=== PATIENT | female | born 1980 | race Caucasian/White ===

== ENCOUNTER 2020-03-25 09:45 | Outpatient (CLI) | payer BC, SELFPAY ==
--- NOTE | ~2020-03-25 | MM_ITS ---
EXAMINATION: MM screening mammo BI HISTORY: Screening mammogram TECHNIQUE: Craniocaudal and mediolateral oblique 3-D tomosynthesis images were obtained and synthetic 2-D images were generated. CAD analysis was submitted and interpreted. COMPARISON: No prior mammogram is available for comparison at this institution. BREAST PARENCHYMAL COMPOSITION: There are scattered areas of fibroglandular density. FINDINGS: There is no evidence of suspicious mass, calcification, or architectural distortion to sugg est malignancy in either breast. There has been no suspicious interval change. IMPRESSION: 1. No mammographic evidence of malignancy. 2. Recommend routine screening mammography in one year. BI-RADS Category 1: Negative Reviewed, dictated and finalized at location A.
== END 2020-03-25 09:46 | disposition home or self-care (01) ==
LOC: ANHIMG 09:46
PROVIDERS: PCP Family Medicine; Visit Provider Obstetrics & Gynecology
DX: Z12.31 Encounter for screening mammogram for malignant neoplasm of breast (principal)
CPT/HCPCS: 77067

== ENCOUNTER 2021-10-27 09:24 | Outpatient (CLI) | payer BC, SELFPAY ==
--- NOTE | ~2021-10-27 | MM_ITS ---
EXAMINATION: MM screening angela BI w sebastian HISTORY: Screening mammogram TECHNIQUE: Craniocaudal and mediolateral oblique 3-D tomosynthesis images were obtained and synthetic 2-D images were generated. CAD analysis was submitted and interpreted. COMPARISON: 03/25/2020 bilateral screening mammogram BREAST PARENCHYMAL COMPOSITION: There are scattered areas of fibroglandular density. FINDINGS: There is no evidence of suspicious mass, calcification, or architectural distortion to sugg est malignancy in either breast. There has been no suspicious interval change. IMPRESSION: 1. No mammographic evidence of malignancy. 2. Recommend routine screening mammography in one year. BI-RADS Category 1: Negative Reviewed, dictated and finalized at location A.
== END 2021-10-27 09:25 | disposition home or self-care (01) ==
PROVIDERS: PCP Family Medicine; Visit Provider Obstetrics & Gynecology
DX: Z12.31 Encounter for screening mammogram for malignant neoplasm of breast (principal)
CPT/HCPCS: 77063; 77067

== ENCOUNTER 2022-07-18 13:40 | Outpatient (CLI) | payer BC, SELFPAY ==
[2022-07-18 14:28] LABS: Hemoglobin A1C 5.8 % (<5.7)
[2022-07-18 14:56] LABS: Thyroid Stimulating Hormone 1.28 uIU/mL (0.36-3.74)
[2022-07-22 17:48] LABS: T4 Thyroxine 6.8 mcg/dL (5.9-10.3)
[2022-07-24 20:47] LABS: FSH 10.3 mIU/mL (***)
== END 2022-07-18 13:41 | disposition home or self-care (01) ==
PROVIDERS: PCP Family Medicine; Visit Provider Obstetrics & Gynecology
DX: N92.6 Irregular menstruation, unspecified (principal)
CPT/HCPCS: 36415; 83001; 83036; 84436; 84443

== ENCOUNTER 2023-08-27 08:59 | Outpatient (CLI) | payer BC, SELFPAY ==
--- NOTE | ~2023-08-27 | US_ITS ---
EXAMINATION: US axilla LT DATE: 08/27/2023 09:36 INDICATION: Left axillary pain and lump TECHNIQUE: Multiple grayscale and Doppler ultrasound images of the region of concern at the left axil la were obtained. COMPARISON: None FINDINGS/IMPRESSION: No lymphadenopathy or other abnormal masses or fluid collections identified at the region of concern at the left axilla. Reviewed, dictated and finalized at location A. PHONE INSTALLER
== END 2023-08-27 09:00 | disposition home or self-care (01) ==
LOC: CHSIMG 09:01
PROVIDERS: PCP Family Medicine; Visit Provider Nurse Practitioner
DX: M79.622 Pain in left upper arm (principal)
CPT/HCPCS: 76882

== ENCOUNTER 2024-04-01 11:43 | Emergency (ER) | payer BC, SELFPAY ==
--- NOTE | ~2024-04-01 | CT_ITS ---
CT abdomen pelvis w con Ordering provider: Oswaldo Chi MD History: 43 years Female with . LLQ pain . Comparison: None. Technique: CT abdomen and pelvis with IV and without oral contrast. Automated exposure control and it erative reconstruction technique were employed. The dose-length product was 1391.40 mGy-cm. 100 mL Om nipaque 350 was given IV. Findings: VISUALIZED LOWER CHEST: Normal. UPPER ABDOMINAL ORGANS: Liver: Hepatomegaly. Gallbladder: Normal. Spleen: Normal. Stomach/duodenum: Normal. Pancreas: Normal. Adrenals: Normal. Kidneys: Tiny cyst in the right kidney upper pole and in the left kidney lower pole. PELVIC ORGANS: The bladder is normal. IUD is seen in the uterus. Small right ovarian cyst measuring 1.6 cm. BOWEL AND MESENTERY: Colon: No evidence of diverticulitis. Fat stranding is seen near to the junction between the sigmoid colon and descending colon with no definite diverticulitis seen in the area. The changes are highly s uggestive of appendagitis. Follow-up advised. Normal appendix. Small Bowel: Normal. No obstruction. Peritoneum/mesentery: No free air or free fluid. No mesenteric lymphadenopathy. RETROPERITONEUM: Normal aorta. Prominent vessels in both sides of the pelvis around the transverse w hich may indicate pelvic congestion syndrome. No retroperitoneal lymphadenopathy. MUSCULOSKELETAL: Superficial soft tissues: The superficial soft tissues are normal. Bones: Age appropriate degenerative changes of the spine. Bilateral sacroiliitis. IMPRESSION: 1. Fat stranding in the left paracolic area adjacent to the sigmoid colon junction with the descendi ng colon most likely due to appendagitis. Follow-up advised. 2. Congestive veins in both sides of the pelvis may indicate pelvic congestion syndrome. Reviewed, dictated and finalized at location A. IMPRESSION: 1. Fat stranding in the left paracolic area adjacent to the sigmoid colon junc tion with the descending colon most likely due to appendagitis. Follow-up advis ed. 2. Congestive veins in both sides of the pelvis may indicate pelvic congestion syndrome.
[2024-04-01 11:47] VITALS: BP 150/93; PULSE 74; RESP 18; TEMP 36.6; O2SAT 100
[2024-04-01 12:18] LABS: BEDSIDEPREGUCG Negative (Negative)
--- NOTE | 2024-04-01 12:24 | ED.ABDPAIN ---
HPI - Abdominal Pain General Chief Complaint: Abdominal Pain Stated Complaint: abdominal pain LLQ x2 days Time Seen by Provider: 04/01/24 11:51 History of Present Illness HPI narrative: Patient is a 43-year-old female who presents ER with abdominal pain over last 2 days. Left lower quadrant. Sharp. Worse with physical movements and bending. Also worse when having a bowel movement. Reports mild constipation over last week. No urinary frequency urgency or dysuria. Reports she has had some intermittent vaginal bleeding over last couple months after having a prolonged period of no menstrual cycle. Denies fevers or chills or sweats. Reports she has a copper IUD. Related Data Home Medications Medication Instructions Recorded Confirmed copper 380 square mm intrauterine 1 device intrauterine ONCE 08/25/19 12/18/23 device (ParaGard T 380A) Saccharomyces boulardii 250 mg 5,000 mmu cells PO DAILY 07/18/22 12/18/23 capsule (Digest Probiotic (S.boulardii)) tirzepatide 10 mg/0.5 mL 10 mg subcut WEEKLY 12/18/23 12/18/23 subcutaneous pen injector (Mounmichellero) Allergies Allergy/AdvReac Type Severity Reaction Status Date / Time No Known Allergies Allergy Verified 04/01/24 12:06 Review of Systems Review of Systems: All systems reviewed & are unremarkable except as noted in HPI and below Constitutional: Constitutional: Reports no additional constitutional complaints Cardiovascular: Cardiovascular: Reports no additional cardiovascular complaints Respiratory: Respiratory: Reports no additional respiratory complaints Gastrointestinal: Gastrointestinal: Reports abdominal pain, Reports constipation, Denies nausea and Denies vomiting Genitourinary: Genitourinary: Reports abnormal vaginal bleeding, Denies hematuria, Denies nocturia, Denies dysuria, Denies flank pain and Denies vaginal discharge [facility] Past Medical History Medical History (Updated 04/01/24 @ 14:21 by Oswaldo Chi MD) Diabetes Vaginal delivery x 2 Surgical History Surgical History History of dilation and curettage Family History Family History Mother Hypertension Grandparent Carcinoma of colon Family history of malignant neoplasm of breast, Onset Age: 63 Diabetes mellitus Social History Social History (Reviewed 06/12/24 @ 09:20 by Shalonda Prakash [facility] Smoking status: Never smoker Second hand tobacco smoke exposure: No Alcohol intake: current Substance use: never Substance use type: does not use Lack of Transportation: No Lack of Food: Never True Current Housing: I Have Housing Concerned About Future Housing: No Difficulty Paying Gas/Electric Bills: No Difficulty Paying for Meds: No Currently Unemployed: No Education: Master's Degree or Higher Exam Narrative: GENERAL: Well-appearing, well-nourished, and in no acute distress. HEAD: Normocephalic, atraumatic. ENT: Mucous membranes moist. NECK: Supple. CHEST: Clear to auscultation. No respiratory distress. HEART: Regular rate and rhythm. Normal peripheral pulses. ABDOMEN: Soft, tender palpation left lower quadrant with guarding, nondistended. EXTREMITIES: Normal range of motion. No edema. SKIN: Warm, dry, no rash. NEURO: No focal deficits. Alert and oriented x3. PSYCH: Normal mood and affect. Course Course Emergency Course: Patient educated on epiploic appendagitis. Appropriate for discharge home. Anti-inflammatories for pain. Vital Signs Vital signs: Vital Signs Temperature 97.8 F 04/01/24 11:47 Pulse Rate 74 04/01/24 11:47 Respiratory Rate 18 04/01/24 11:47 Blood Pressure 150/93 H 04/01/24 11:47 Pulse Oximetry 100 04/01/24 11:47 Oxygen Delivery Room Air 04/01/24 11:47 Temperature 97.8 F 04/01/24 11:47 Pulse Rate 74 04/01/24 11:47 Respiratory Rate 18 04/01/24 11:47 Blood Pressure 150
[2024-04-01 12:38] LABS: Basophils Absolute Auto 0.1 K/mm3 (0.0-0.1); Basophils Percent Auto 0.6 % (0.2-1.2); Eosinophils Absolute Auto 0.1 K/mm3 (0-0.3); Eosinophils Percent Auto 1.4 % (0-4.4); Hematocrit 41.6 % (37.0-47.0); Hemoglobin 13.4 g/dL (12.0-15.0); Immature Granulocyte Absolute 0.02 K/mm3 (0.00-0.031); Immature Granulocyte Percent A 0.3 % (0-0.5); Lymphocytes Absolute Auto 2.26 K/mm3 (0.9-3.2); Lymphocytes Percent Auto 29.4 % (18.3-44.2); Mean Corpuscular HGB Conc 32.2 g/dl (32-36); Mean Corpuscular Hemoglobin 26.9 pg (26-34); Mean Corpuscular Volume 83.5 fl (80-100); Mean Platelet Volume 9.4 fl (7.4-10.4); Monocytes Absolute Auto 0.6 K/mm3 (0.1-0.6); Monocytes Percent Auto 7.7 % (2.6-8.5); Neutrophils Absolute Auto 4.7 K/mm3 (1.3-6.7); Neutrophils Percent Auto 60.6 % (45.5-73.1); Platelet Count Result 256 k/mm3 (150-375); Red Blood Count 4.98 M/mm3 (4.2-5.4); Red Cell Distribution Width 13.8 % (11.5-14.5); White Blood Count 7.7 K/mm3 (4.5-10.0)
[2024-04-01 12:44] LABS: Add Urine Microscopic? YES; Appearance Urine Clear (Clear); Bacteria Urine None Seen /hpf; Bilirubin Urine Negative (Negative); Blood Urine 3+ (Negative); Color Urine Yellow (Yellow); Glucose Urine UA Negative (Negative); Ketones Urine Negative (Negative); Leukocyte Esterase Ur Negative LEU/UL (Negative); Nitrate Urine Negative (Negative); Non Pathogenic Casts 0-2; Protein Urine Trace mg/dL (Negative); RBC Urine >100 /hpf (0-2); Specific Grav Ur 1.006 (1.001-1.035); Squamous Epithelial Cell Urine None Seen /hpf (Few); Urobilinogen Urine 0.2 mg/dL (<2.0); WBC Urine 0-5 /hpf (0-3); pH Urine 7.5 (5.0-9.0)
[2024-04-01 12:51] LABS: Alanine Aminotransferase 41 U/L (6-35); Albumin Level 4.4 g/dL (3.5-5.1); Alkaline Phosphatase 56 U/L (38-126); Anion Gap 8 mmol/L (4-12); Aspartate Amino Transferase 30 U/L (14-36); Bilirubin,Total 0.5 mg/dL (0.2-1.3); Blood Urea Nitrogen 10 mg/dL (7-17); Calcium 9.1 mg/dL (8.4-10.2); Carbon Dioxide 27 mmol/L (22-30); Chloride 104 mmol/L (98-107); Estimated CRCL calculation 111 ml/min; Estimated Glomerular Filt Rate > 60; Glucose 99 mg/dL (65-110); Lipase 176 U/L (23-300); Potassium 3.6 mmol/L (3.4-5.0); Sodium 139 mmol/L (137-145)
[2024-04-01 14:31] VITALS: BP 121/80; PULSE 75; RESP 16; O2SAT 99
== END 2024-04-01 14:32 | disposition home or self-care (01) ==
PROVIDERS: Emergency Provider Emergency Medicine; PCP Family Medicine
DX: K63.89 Other specified diseases of intestine (principal); E11.9 Type 2 diabetes mellitus without complications; Z79.85 Long-term (current) use of injectable non-insulin antidiabetic drugs; Z79.899 Other long term (current) drug therapy; R93.5 Abnormal findings on diagnostic imaging of other abdominal regions, including retroperitoneum
CPT/HCPCS: 36415; 74177; 80053; 81001; 81025; 83690; 85025; 99284; Q9967

== ENCOUNTER 2024-06-24 13:42 | Emergency (ER) | payer BC, SELFPAY ==
[2024-06-24 13:50] VITALS: BP 141/93; PULSE 93; RESP 16; TEMP 37.4; O2SAT 99
--- NOTE | 2024-06-24 20:36 | ED_ITS ---
HPI - URI/Sore Throat General Chief Complaint: Upper Respiratory Infection Stated Complaint: Ear Pain/Cough Time Seen by Provider: 06/24/24 13:58 Source: patient and RN notes reviewed Mode of arrival: ambulatory Limitations: no limitations History of Present Illness HPI Narrative: Patient presents today complaining of a 4 day history of cough, facial pain, to dental pain, bilateral ear pain, headache, congestion. She has tried Advil cold and Sinus with some mild relief. History of ear tubes. She is a nonsmoker. Related Data Home Medications ?Medication ?Instructions ?Recorded ?Confirmed ?Last Taken ?Type copper 380 square mm intrauterine 1 device intrauterine ONCE 08/25/19 04/08/24 Unknown History device (ParaGard T 380A) Saccharomyces boulardii 250 mg 5,000 mmu cells PO DAILY 07/18/22 04/08/24 Unknown History capsule (Digest Probiotic (S.boulardii)) semaglutide 2 mg/dose (8 mg/3 mL) 2 mg subcut WEEKLY 04/08/24 04/08/24 Unknown History subcutaneous pen injector (Ozempic) albuterol sulfate 90 mcg/actuation inhalation 06/24/24 Unknown History aerosol inhaler Allergies Allergy/AdvReac Type Severity Reaction Status Date / Time No Known Allergies Allergy Verified 06/24/24 14:00 Review of Systems Review of Systems: CONSTITUTIONAL: Denies body aches, fever, chills, or sweats. EYES: Denies visual changes, redness, or discharge. ENT: Denies rhinorrhea, sore throat.+ congestion, facial pain, dental pain, bilateral ear pain CARDIOVASCULAR: Denies chest pain, palpitations, or edema. RESPIRATORY: Denies dyspnea.+ cough GASTROINTESTINAL: Denies abdominal pain, nausea, vomiting, or diarrhea. GENITOURINARY: Denies dysuria or hematuria. SKIN: Denies rash, itching, or wounds. MUSCULOSKELETAL: Denies back pain, joint pain, or myalgia. NEUROLOGIC: Denies numbness, tingling, or weakness.+ headache PSYCH: Denies depression or anxiety. [facility] Past Medical History Medical History Diabetes Vaginal delivery x 2 Surgical History Surgical History History of dilation and curettage Family History Family History Mother Hypertension Grandparent Carcinoma of colon Family history of malignant neoplasm of breast, Onset Age: 63 Diabetes mellitus Social History Social History Smoking status: Never smoker Second hand tobacco smoke exposure: No Alcohol intake: current Substance use: never Substance use type: does not use Lack of Transportation: No Lack of Food: Never True Current Housing: I Have Housing Concerned About Future Housing: No Difficulty Paying Gas/Electric Bills: No Difficulty Paying for Meds: No Currently Unemployed: No Education: Master's Degree or Higher Comments At time of signature, I have reviewed and agree with nursing past medical, surgical, social and family history unless otherwise noted. Please see nursing chart for further information. There is no relevant family history pertinent to the presenting complaint Exam Narrative: GENERAL: Mildly ill-appearing, well-nourished, and in no acute distress. HEAD: Normocephalic, atraumatic. EYES: EOMI. No redness or drainage. Conjunctivae normal. ENT: Mucous membranes pink and moist. Nares congested with rhinorrhea. TMs normal bilaterally. Throat normal. Uvula midline. NECK: Normal AROM. Supple. No lymphadenopathy. CHEST: No respiratory distress. Clear to auscultation. HEART: Regular rate and rhythm. No murmur appreciated. EXTREMITIES: Normal range of motion. No edema. SKIN: Warm, dry, no rash. Capillary refill normal. Normal skin turgor. NEURO: No focal deficits. Alert and oriented x3. Gait steady. PSYCH: Normal affect. No signs of depression or anxiety. Course Course Level of Care: Express Care Visit Vital Signs Vital signs: Vital Signs Temperature 99.3 F 06/24/24 13:50 Pulse Rate 93 06/24/24 13:50 Respiratory Rate 16 06/24/24 13:50 Blood Pressure 141/93 H 06/24/24 13:50 Pulse Oximetry 99 06/24/24 13:50 Temperature 99.3 F 06/24/24 13:50 Pulse Rate 93 06/24/24 13:50 Respiratory Rate 16 06/24/24 13:50 Blood Pressure 141/93 H 06/24/24 13:50 Pulse Oximetry 99 06/24/24 13:50 Oxygen Delivery Room Air 06/24/24 14:00 Reviewed MDM - URI/Sore Throat MDM Narrative Medical decision making narrative: Symptoms likely viral in etiology. Discussed [id number] medication use and duration of illness. No prescription medications indicated at this time. Anticipatory guidance given. Differential Diagnosis Differential diagnosis: Likely upper respiratory infection, otitis media, sinusitis, viral infection and bronchitis Critical Care Time Critical Care Time Critical Care Time: No Discharge Plan Discharge Clinical Impression: Upper respiratory infection Qualifiers: URI type: unspecified URI Qualified Code(s): J06.9 - Acute upper respiratory infection, unspecified Patient Disposition: Home, Self-Care Condition: Stable Instructions: Upper Respiratory Infection (DC) Additional Instructions: Your symptoms are likely due to a viral illness, which is not treated with antibiotics. Virus symptoms can last for up to 7-10days. Take or ibuprofen for pain or fever if needed. Consider starting Sudafed and Flonase for your nasal congestion and facial pressure. You may also try a few doses of Afrin if you have severe ear pressure or before flying. Rest and stay hydrated. Follow up with your PCP in 7 days if symptoms are not improving. Go to the ER immediately if you develop shortness of breath, difficulty swallowing, or any other concerning symptoms. Your blood pressure was elevated above 120/80 today at Urgent Care. This puts you above the threshold for follow up. Please schedule a followup visit with your personal physician as soon as possible, for further evaluation and treatment. Even blood pressure exceeding 120/80 may indicate pre-hypertension. Patient Language: Polish Prescriptions: No Action albuterol sulfate 90 mcg/actuation HFA aerosol inhaler INHALATION ParaGard T 380A 380 square mm intrauterine device 1 device I-UTERINE ONCE Rx Instructions: as a single dose Saccharomyces boulardii [Digest Probiotic (S.boulardii)] 250 mg capsule 5,000 mmu cells PO DAILY Ozempic 2 mg/dose (8 mg/3 mL) pen injector 2 mg subcut WEEKLY naproxen 375 mg tablet 375 mg PO BID Qty: 14 0RF sertraline 50 mg tablet 50 mg PO DAILY Qty: 90 1RF Follow-up/Referrals: PHYSICIAN,WIRE WHEELER [Primary Care Provider] - Time of Disposition: 14:18
== END 2024-06-24 14:19 | disposition home or self-care (01) ==
PROVIDERS: Emergency Provider Nurse Practitioner
DX: J06.9 Acute upper respiratory infection, unspecified (principal); E11.9 Type 2 diabetes mellitus without complications
CPT/HCPCS: 99213; G0463

== ENCOUNTER 2024-12-18 12:55 | Outpatient (CLI) | payer BC, SELFPAY ==
--- NOTE | ~2024-12-18 | MM_ITS ---
EXAMINATION: MM screening angela BI w sebastian HISTORY: Screening TECHNIQUE: Craniocaudal and mediolateral oblique 3-D tomosynthesis images were obtained and synthetic 2-D images were generated. CAD analysis was submitted and interpreted. COMPARISON: Comparison to multiple prior studies sequentially, with oldest reviewed study dated 03/25. BREAST PARENCHYMAL COMPOSITION: Not dense: There are scattered areas of fibroglandular density. FINDINGS: There is no evidence of suspicious mass, calcification, or architectural distortion to sugg est malignancy in either breast. There has been no suspicious interval change. IMPRESSION: 1. No mammographic evidence of malignancy. 2. Recommend routine screening mammography in one year. BI-RADS Category 1: Negative Reviewed, dictated and finalized at location B.
--- OUTSIDE RECORDS SUMMARY | 2024-12-18 12:59 | XMS_ITS ---
Author Organization Unknown Address [address] [place] [phone] Phone Care Team Providers Care Line Installation Supervisor Name Role Phone EULALIA MOE Attending Unavailable FELIPE Baker Primary Unavailable Immunization Immunization Date Status Additional Notes Code Code System Influenza, split virus, trivalent, preservative 07/17/2013 Completed 141 CVX Influenza, split virus, quadrivalent, preservative 04/20/2020 Completed 158 C VX Influenza, split virus, quadrivalent, preservative 05/09/2021 Completed 158 C VX COVID-19, mRNA, LNP-S, PF, 1 00 mcg/0.5mL dose or 50 mcg/0.25mL dose 06/28/2021 Completed 207 CVX Results DIG 3D SALVATORE SCREENING BILATER AL - Completed: 08/23/2023 14:42 LOINC: See Scanned Image Attachment for Report Dictated By: Trans Initials: BG Trans Date: 08/29/23 11:05 <<REPDIST>> Social History Type Status Start Date End Date Code Code Syst em Smoking History Former smoker [id number] SNOMED CT Sex Female Hospital Discharge Instructions Should you have any questions prior to discharge, please contact a member of your healthcare team. If you have left the hospital and have any questions, please contact your primary care physician. Reason For Referral No Data Found Plan of Treatment Digital Salvatore Screen Bilateral (60407) Encounters Encounter Diagnosis Start Date Code Code Sys tem Screening mammography 08/23/2023 [id number] SNOMED -CT Personal Care Team Section Imaging Narrative Notes [facility] 08/29/2023 11:[address] [address] RADIOLOGY REPORT Patient Number: [id number] Patient Name: RAE JACKELINE STONE Type: O/P MR Number: [id number] : 1980 Age: 43 Sex: F Room #: Admit Date: 08/23/23 Discharge Date 08/23/23 Ordering Physician: EULALIA MOE Family Physician: FELIPE HERNANDES Second Physician: X-Ray Number : [id number] DIG 3D SALVATORE SCREENING BILATERA [id number] COMPLETE:08/23/23 14:42 KSE [id number] (REASONS-DIG 3D SALVATORE SCREENING BILATERAL: SCREENING See Scanned Image Attachment for Report Dictated By: Michael Initials: BG Rodriguez Date: 08/29/23 11:05 <<REPDIST>>
== END 2024-12-18 12:56 | disposition home or self-care (01) ==
LOC: CHSIMG 12:56
PROVIDERS: PCP Nurse Practitioner; Visit Provider Nurse Practitioner
DX: Z12.31 Encounter for screening mammogram for malignant neoplasm of breast (principal)
CPT/HCPCS: 77063; 77067